=== PATIENT | female | born 1985 | race African-American/Black ===

== ENCOUNTER 2023-10-26 19:40 | Emergency (ER) | payer OTHER ==
[2023-10-26 19:55] VITALS: BP 110/73; PULSE 95; RESP 20; TEMP 98.5; BMI 24.8
[2023-10-26] MEDS ORDERED: BACITRACIN ZINC 15 GM TUBE TOPICAL OINTMENT ONE (20:43)
[2023-10-26] MEDS: BACITRACIN ZINC 15 GM TUBE TOPICAL OINTMENT TP ONE (20:44)
== END 2023-10-26 20:51 | disposition home or self-care (01) ==
LOC: JERFT 19:40
DX: Z48.01 Encounter for change or removal of surgical wound dressing (principal)
CPT/HCPCS: 99283-25